=== PATIENT | male | born 1960 | race Caucasian/White ===

== ENCOUNTER 2016-08-06 21:12 | Emergency (ER) | payer BC ==
[~2016-08-06] VITALS: Ht 185.4 cm; Wt 115.3 kg
[2016-08-06] MEDS ORDERED: PERCOCET 5/31 TABLET PO (23:54)
[2016-08-06] MEDS ORDERED: VIGAMOX 0.60 DROP/3 RIGHT EYE (23:54)
[2016-08-07 00:12] VITALS: BP 169/90
== END 2016-08-07 00:14 | disposition home or self-care (01) ==
LOC: EME 21:12 → EXP 21:12
DX: T15.01XA Foreign body in cornea, right eye, initial encounter (principal); E11.9 Type 2 diabetes mellitus without complications; I10 Essential (primary) hypertension; E78.5 Hyperlipidemia, unspecified; Y92.9 Unspecified place or not applicable; Z88.0 Allergy status to penicillin
CPT/HCPCS: 70480; 99281; 99283